=== PATIENT | female | born 1995 | race Caucasian/White ===

== ENCOUNTER 2024-12-26 10:39 | Inpatient (IN) ==
[2024-12-26] MEDS ORDERED: LIDOCAINE 1% LOCAL 20 ML VIAL INFIL PRN (12:45)
[2024-12-26] MEDS ORDERED: OXYTOCIN 30 UNITS/NSS 30 UNITS/500 ML BAG IV PRN ×3 (12:45→21:21)
[2024-12-26] MEDS: LACTATED RINGER'S 1,000 ML IV PRN (13:00)
[2024-12-26 13:22] LABS: Hemoglobin 14.9 g/dl (12.0-16.0); Mean Corpuscular Hemoglobin 33.1 pg (25.0-34.0); Mean Corpuscular Hgb Conc 36.3 g/dL (32.0-36.0); Mean Corpuscular Volume 91.1 fL (80.0-100.0); Mean Platelet Volume 12.6 fL (9.4-12.4); Platelet Count 169 K/uL (130-400); RDW Coefficient of Variation 12.5 % (11.5-14.5); RDW Standard Deviation 41.5 fL (36.4-46.3); White Blood Count 14.23 K/ul (4.8-10.8)
[2024-12-26] MEDS: PENICILLIN GK 6 MU in DEXTROSE 5% 250 ML IV STA (13:30)
--- NOTE | 2024-12-26 13:33 | History & Physical Report ---
Date of Service December 26, 2024 Assessment & Plan (1) Carrier of group B Streptococcus: (2) Normal labor: Plan unable to examine patient. Patient very scared of needles and notes she does not want an epidural. Is afraid of even an IV. Discussed walking and rechecking in an hour, but over that hour the patient became much more uncomfortable and had some bloody show. Likely in labor and 41 weeks. Discussed in detail the epidural and how it will help with labor and ability to evaluate, will never see a needle. She is agreeable to admission and epidural and then will evaluate cervix. Fetus has been overall reassuring and category one. Dr. 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 History of Present Illness Chief Complaint: painful contractions Primary Care Provider: NO PCP Patient is a 29yowf with iup at 41 0/7 who presents to labor and delivery with painful contractions since about 8am. no lof/vb. +fm and Delivery Plans GBS Positive in Urine *Treat in Labor IOL post-dates 12/29 inability to tolerate exam OB Labs: Blood Type A Positive 06/09/24 Antibody Screen NEGATIVE 06/09/24 Hgb 12.9 g/dl (12.0-16.0) 09/29/24 Hct 36.7 % (37.0-47.0) L 09/29/24 MCV 88.5 fL (80.0-100.0) 06/09/24 Plt Count 182 K/uL (130-400) 06/09/24 Rubella IgG Antibody Immune (Immune) 06/09/24 Treponema pallidum Ab Negative (Negative) 09/29/24 Hep Bs Antigen Negative (Negative) 06/09/24 Hepatitis C Antibody Negative (Negative) 06/09/24 HIV 1&2 Ab/P24 Ag 4thGn Negative (Negative) 06/09/24 Glucose 1 Hr 50 gm 154 mg/dl (70-130) H 09/29/24 Maternal Serum AFP 40.4 ng/mL 07/07/24 OB Optional Labs: Chlamydia trachomatis RNA Not Detected (NotDetected) 05/12/24 Neisseria gonorrhoeae RNA Not Detected (NotDetected) 05/12/24 Alpha Fetoprotein Triple Screen SEE NOTE 07/07/24 GBS neg neg Horizon, low risk panorama Allergies Allergy/AdvReac Type Severity Reaction Status Date / Time Sulfa (Sulfonamide Allergy Intermediate Rash Verified 12/22/24 14:24 Antibiotics) Home Medications Medication Instructions Recorded Confirmed Type loratadine 10 mg tablet (Claritin) 10 mg PO DAILY 11/10/23 12/22/24 History ascorbate calcium (vitamin C) PO 05/05/24 12/22/24 History fluticasone propionate [Flonase] intranasal 05/05/24 12/22/24 History vits,calcium 21-iron fum tab PO 05/05/24 12/22/24 History 14 mg iron-folic acid 400 mcg tablet ( Complete) Patient History Medical History Dental root implant present Miscarriage Varicella vaccine Surgical History H/O tympanostomy S/P wisdom tooth extraction Family History Grandmother (Maternal) Breast cancer Denies family history of Ovarian cancer Prostate cancer Myocardial infarction Colorectal cancer Social History Smoking Status: Never smoker Second Hand Exposure: No; Do You Dip or Chew Tobacco: No; Tobacco Cessation Education Requested by Patient: No Hx Alcohol Use: No Hx Substance Use: No Preferred Language: German Communication Ability: Effective Card Doffer Required: No Beliefs That Will Affect Care: None marital status: marital status details: Spouse Everton Arreaga [phone] Current Living Situation: Spouse Current Living Situation Comment: Everton- current occupational status: employed current occupation: [employer] Other Information That Helps Us Care for You: No Feels Safe at Home: Yes Safety Concerns: Feels Safe At This Time Assistive Devices: None OB History g1--present 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 barely allows me to place a finger vaginally, on attempt, cx posterior, ? 1-2cm toco--q2-3 efm--130s with mod variability, accels present, no decels Results & Data Vital Signs (Past 12 Hours) Vital Signs Temp Pulse Resp BP Pulse Ox 12/26/24 13:31 87 100 12/26/24 13:26 85 100 12/26/24 13:17 77 99 12/26/24 13:12 88 100 12/26/24 13:07 85 100 12/26/24 13:02 68 100 12/26/24 10:47 36.7 C 75 18 128/78 Coding Level of Care Code None Diagnoses Carrier of group B Streptococcus Z22.330 Normal labor O80; Z37.9
[2024-12-26] MEDS ORDERED: fentaNYL citrate PF 100 MCG/2 ML VIAL EPI PRN (13:45)
[2024-12-26] MEDS ORDERED: SODIUM CHLORIDE 0.9% PF INJ 10 ML VIAL EPI PRN (13:45)
[2024-12-26] MEDS ORDERED: NALOXONE HCL 1 MG in SODIUM CHLORIDE 0.9% 1,000 ML IV PRN (13:45)
[2024-12-26] MEDS ORDERED: BUPIVACAINE 0.25% PF 30 ML VIAL EPI PRN (13:45)
[2024-12-26] MEDS ORDERED: diphenhydrAMINE 50 MG/ML VIAL IV PRN (13:45)
[2024-12-26] MEDS ORDERED: NALOXONE HCL 0.4 MG/1 ML VIAL/CARP IV PRN (13:45)
[2024-12-26] MEDS ORDERED: LIDOCAINE 2% MPF LOCAL 5 ML VIAL EPI PRN (13:45)
[2024-12-26] MEDS ORDERED: LIDOCAINE 2%/EPINEPHRINE 1:200,000 20 ML PF EPI STA (13:45)
[2024-12-26] MEDS ORDERED: ePHEDrine sulfate 50 MG/ML AMP IV PRN (13:45)
[2024-12-26] MEDS ORDERED: SODIUM CHLORIDE 0.9% PF INJ 10 ML VIAL EPI STA (13:45)
[2024-12-26] MEDS ORDERED: NALBUPHINE HCL INJ 10 MG/ML AMP IV PRN (13:45)
[2024-12-26] MEDS ORDERED: ROPIVACAINE 0.5% PF 5 MG/ML 20 ML VIAL EPI PRN (13:45)
--- NOTE | 2024-12-26 13:49 | Anesthesiology Consultation ---
Date of Service December 26, 2024 Assessment & Plan Chart Review Chart Review: Patient NOT seen in Pre Admission Testing and Acceptable Risk for Labor Epidural Consults Requested none ASA ASA2 Proposed Anesthesia Anesthesia Type: Labor Epidural Risk / Benefits Reviewed With: PT / POA / Parent / Guardian, Accepts Plan and Informed Consent Obtained History Height/Weight Height: 5 ft 1 in Weight: 65.771 kg Allergies Allergy/AdvReac Type Severity Reaction Status Date / Time Sulfa (Sulfonamide Allergy Intermediate Rash Verified 12/22/24 14:24 Antibiotics) Medications Home Medications Medication Instructions Recorded Confirmed Last Taken loratadine 10 mg tablet (Claritin) 10 mg PO DAILY 11/10/23 12/22/24 11/10/23 ascorbate calcium (vitamin C) PO 05/05/24 12/22/24 Unknown fluticasone propionate [Flonase] intranasal 05/05/24 12/22/24 Unknown vits,calcium 21-iron fum tab PO 05/05/24 12/22/24 Unknown 14 mg iron-folic acid 400 mcg tablet ( Complete) Active Medications Generic Name Dose Route Start Last Admin Trade Name Freq PRN Reason Stop Dose Admin Lactated Ringer's 1,000 mls @ 125 mls/hr 12/26/24 12:45 12/26/24 13:31 Lr IV 12/27/24 12:44 125 mls/hr .Q8H PRN Infusion L&D Protocol Protocol NPO Date Last Intake of Fluids: 12/26/24 Time Last Intake of Fluids: 13:30 Date Last Intake of Solids: 12/26/24 Time Last Intake of Solids: 06:00 Past Medical History Medical History Dental root implant present Miscarriage Varicella vaccine Exercise / Class Metabolic Activity 1 > 8 Run/Swim/Ski/Tennis Past Family History Family History Grandmother (Maternal) Breast cancer Denies family history of Ovarian cancer Prostate cancer Myocardial infarction Colorectal cancer Past Surgical History Surgical History H/O tympanostomy S/P wisdom tooth extraction Past Anesthesia History No Hx of Anesthesia Complications and No Family Hx of Anesthesia Complications History of PONV No Hx of PONV and No Hx of Motion Sickness Social History Smoking Status: Never smoker Do You Dip or Chew Tobacco: No Hx Alcohol Use: No Hx Substance Use: No substance use type: does not use Review of Systems ROS Unobtainable: All systems reviewed & are unremarkable except as noted in HPI & below Physical Exam Vital Signs Last Vital Signs Temp 36.7 C 12/26/24 10:47 Pulse 84 12/26/24 13:41 Resp 18 12/26/24 10:47 BP 128/78 12/26/24 10:47 Pulse Ox 100 12/26/24 13:41 ENMT Mouth: no TMJ abnormality Thyromental Distance: > or= 3.5 Finger Breadths Mallampati Class: II Neck normal visual inspection and trachea midline; neck extension not limited Respiratory normal respiratory effort Auscultation: lungs clear to auscultation bilaterally Cardiovascular Rate/Rhythm: regular rate and regular rhythm Heart Sounds: no murmur Musculoskeletal Spine: normal cervical ROM Extremities: full ROM of extremities Neurologic moves all extremities Psychiatric Orientation: alert and oriented x 3 Testing Laboratory Results 12/26/24 12:52
[2024-12-26] MEDS: LIDOCAINE 2%/EPINEPHRINE 1:200,000 20 ML PF ONE (14:06)
[2024-12-26] MEDS: fentANYL 2 MCG/ML BUPIVacaine 0.125%-NSS 100ML BAG ONE (14:06)
[2024-12-26] MEDS: BUPIVACAINE 0.25% PF 30 ML VIAL EPI STA (14:06)
[2024-12-26] MEDS: ePHEDrine sulfate 50 MG/ML AMP ONE (14:10)
[2024-12-26] MEDS: fentaNYL citrate PF 100 MCG/2 ML VIAL ONE (14:10)
[2024-12-26] MEDS: SODIUM CHLORIDE 0.9% PF INJ 10 ML VIAL ONE (14:10)
[2024-12-26] MEDS: PENICILLIN GK 3 MU in DEXTROSE 5% 100 ML IV SCH (17:02)
--- NOTE | 2024-12-26 17:11 | Anesthesia Procedure Note ---
Date of Service December 26, 2024 Anesthesia Epidural Re-Dose Vital Signs Temp Pulse Resp BP Pulse Ox 36.7 C 79 18 121/77 100 12/26/24 14:30 12/26/24 17:06 12/26/24 16:30 12/26/24 17:05 12/26/24 17:06 Notes Pain Intensity: 1 Dilatation (cm): 7.0 Effacement (%): 100 Called by nursing to evaluate epidural as the patient is having increased pain. The epidural was re-dosed with the following medications (all medications via epidural route) after negative aspiration of the epidural catheter for CSF/HEME. 0.2 Ropivacaine ml via epidural After Epidural Re-Dose Mental Status: alert / awake / arousable and participated in evaluation Pain: improving with treatment Airway Patency, RR, SpO2: stable & adequate BP & HR: stable & adequate Additional Notes: Asked to assess patient for redose. Patient had T12 level on right and L2 level on left. Redosed with 100 mcg fentanyl and 8 cc of 0.25 % bupi. pain improved. HDS
[2024-12-26] MEDS: fentaNYL citrate PF 100 MCG/2 ML VIAL EPI STA (17:18)
[2024-12-26] MEDS: BUPIVACAINE 0.25% PF 30 ML VIAL ONE (17:18)
--- NOTE | 2024-12-26 17:58 | Labor Progress Brief Note ---
Date of Service December 26, 2024 Subjective Comfortable after redosed epidural. Physical Exam Genitourinary: 9/100/0 SROM during exam without using hook, moderate mec fluid. FHT cat 1 with early decels intermittently. Add pitocin to improve contraction pattern, which was Q2-3 but has recently become somewhat dysfunctional with grouped contractions. Results & Data Vital Signs (Past 12 Hours) Vital Signs Temp Pulse Resp BP Pulse Ox 12/26/24 17:55 90 118/79 12/26/24 17:51 76 99 12/26/24 17:50 65 118/73 12/26/24 17:46 66 99 12/26/24 17:45 67 119/72 12/26/24 17:41 67 98 12/26/24 17:40 70 112/70 12/26/24 17:36 69 98 12/26/24 17:35 68 122/72 12/26/24 17:31 70 97 12/26/24 17:30 78 16 118/69 12/26/24 17:26 75 98 12/26/24 17:25 71 121/73 12/26/24 17:21 77 97 12/26/24 17:20 72 113/70 12/26/24 17:17 77 122/76 12/26/24 17:16 73 99 12/26/24 17:11 81 98 12/26/24 17:06 79 100 12/26/24 17:05 75 121/77 12/26/24 17:01 115 H 100 12/26/24 17:00 18 12/26/24 17:00 18 12/26/24 16:56 99 H 99 12/26/24 16:51 105 H 100 12/26/24 16:50 96 H 127/77 12/26/24 16:46 92 H 100 12/26/24 16:41 108 H 100 12/26/24 16:36 76 100 12/26/24 16:35 91 H 115/75 12/26/24 16:31 82 100 12/26/24 16:30 18 12/26/24 16:30 18 12/26/24 16:26 79 100 12/26/24 16:21 100 12/26/24 16:21 83 12/26/24 16:21 71 120/78 12/26/24 16:16 82 100 12/26/24 16:11 74 100 12/26/24 16:06 67 99 12/26/24 16:05 74 113/80 12/26/24 16:01 73 100 12/26/24 16:00 18 12/26/24 16:00 18 12/26/24 15:56 57 L 100 12/26/24 15:51 58 L 100 12/26/24 15:50 55 L 110/75 12/26/24 15:46 65 100 12/26/24 15:41 83 98 12/26/24 15:36 60 100 12/26/24 15:35 70 111/71 12/26/24 15:31 65 100 12/26/24 15:30 16 12/26/24 15:30 16 12/26/24 15:26 63 100 12/26/24 15:21 100 12/26/24 15:21 74 12/26/24 15:21 61 106/59 L 12/26/24 15:16 58 L 100 12/26/24 15:11 70 100 12/26/24 15:06 66 100 12/26/24 15:05 63 108/67 12/26/24 15:01 59 L 100 12/26/24 15:00 16 12/26/24 15:00 16 12/26/24 14:56 64 100 12/26/24 14:51 68 100 12/26/24 14:48 71 103/66 12/26/24 14:46 66 100 12/26/24 14:43 66 104/64 12/26/24 14:41 62 100 12/26/24 14:38 59 L 107/63 12/26/24 14:36 61 100 12/26/24 14:32 61 106/60 12/26/24 14:31 70 100 12/26/24 14:30 98.1 F 61 16 108/55 L 12/26/24 14:28 60 105/55 L 12/26/24 14:26 67 107/64 100 12/26/24 14:24 67 105/60 12/26/24 14:22 60 100/58 L 12/26/24 14:21 62 100 12/26/24 14:20 66 102/58 L 12/26/24 14:18 71 110/61 12/26/24 14:16 100 12/26/24 14:16 79 04/11/25 14:16 78 102/57 L 12/26/24 14:14 76 96/68 L 12/26/24 14:12 79 98/58 L 12/26/24 14:11 79 98 12/26/24 14:10 79 106/64 12/26/24 14:08 80 100/64 12/26/24 14:06 97 12/26/24 14:06 73 12/26/24 14:06 78 102/67 12/26/24 14:04 83 101/72 12/26/24 14:02 83 125/73 12/26/24 14:01 87 98 12/26/24 13:56 87 100 12/26/24 13:51 81 100 12/26/24 13:46 83 100 12/26/24 13:41 84 100 12/26/24 13:36 90 100 12/26/24 13:31 87 100 12/26/24 13:26 85 100 12/26/24 13:17 77 99 12/26/24 13:12 88 100 12/26/24 13:07 85 100 12/26/24 13:02 68 100 12/26/24 10:47 98.1 F 75 18 128/78 Coding Level of Care Code None
--- NOTE | 2024-12-26 19:17 | Anesthesia Procedure Note ---
Date of Service December 26, 2024 Anesthesia Epidural Re-Dose Vital Signs Temp Pulse Resp BP Pulse Ox 37.1 C 93 H 20 117/65 96 12/26/24 17:50 12/26/24 19:12 12/26/24 19:00 12/26/24 19:12 12/26/24 19:11 Notes Pain Intensity: 4 Dilatation (cm): 10.0 Effacement (%): 100 Called by nursing to evaluate epidural as the patient is having increased pain. The epidural was re-dosed with the following medications (all medications via epidural route) after negative aspiration of the epidural catheter for CSF/HEME. 0.2 Ropivacaine ml via epidural After Epidural Re-Dose Mental Status: alert / awake / arousable and participated in evaluation Pain: improving with treatment Airway Patency, RR, SpO2: stable & adequate BP & HR: stable & adequate Additional Notes: Patient reports severe pain again. Suspect patient's anxiety is also contributing to increased pain. Increased pump settings and dosed with 5 cc of 2% lidocaine .pain improved. HDS. is 10 cm and will start to push soon.
[2024-12-26] MEDS ORDERED: NURSING L&D Epidural Breakthrough Pain Update ONE (19:31)
[2024-12-26] MEDS: fentANYL 2 MCG/ML BUPIVacaine 0.125%-NSS 100ML BAG EPI PRN (20:02)
[2024-12-26] MEDS: OXYTOCIN 30 UNITS/NSS 30 UNITS/500 ML BAG IV PRN (20:25)
--- NOTE | 2024-12-26 20:47 | Delivery Summary ---
Vaginal Delivery Summary Date of Service December 26, 2024 Vaginal Delivery Summary DIAGNOSES: 1. Lopez intrauterine at 41w0d gestation. 2. Spontaneous onset of labor. 3. Group B Streptococcus Pos. PROCEDURE: Spontaneous vaginal delivery and repair of second degree laceration. SURGEON: Sonya Roque MD. MECHANICAL ORDNANCE ASSEMBLER: None. ESTIMATED BLOOD LOSS: 200 mL. COMPLICATIONS: None. PLACENTA: Spontaneous and intact with a 3-vessel cord. DISPOSITION: Stable to labor and delivery. DESCRIPTION: The patient pushed well and brought the head to in OA position. The infant's head was allowed to deliver with contraction force and no further active pushing, with the perineum protected during this time. There was no nuchal cord. The shoulders and body delivered without any difficulty, and the infant was placed on the maternal abdomen. It was vigorous and moving all extremities, and making respiratory efforts. The cord was doubly clamped by the MD and then cut by the FOB. The placenta delivered spontaneously and was noted to be intact and with a 3VC. The cervix, vagina and perineum were examined and were found to have a second degree laceration which was repaired in the usual manner with vicryl suture, including a crown stitch to rebuild the perineal body. The fundus was firm and lochia minimal immediately after delivery. [facility] Vaginal Delivery Charge Vaginal Delivery Codes: 83259 global code for the antepartum, delivery, and post-
[2024-12-26] MEDS ORDERED: HYDROCORTISONE ACETATE 25 MG SUPP PR PRN (21:21)
[2024-12-26] MEDS ORDERED: oxyCODONE/ACETAMINOPHEN 5mg/325mg TAB PO PRN (21:21)
[2024-12-26] MEDS ORDERED: bisacodyL 10 MG SUPP PR PRN (21:21)
--- NOTE | 2024-12-26 21:30 | Anesthesia Procedure Note ---
Date of Service December 26, 2024 Anesthesia Post Epidural Note Vital Signs Vital Signs: Temp Pulse Resp BP Pulse Ox 37.0 C 86 18 108/68 97 12/26/24 19:30 12/26/24 21:27 12/26/24 19:30 12/26/24 21:27 12/26/24 20:56 Pain Intensity Right Lower Abdomen: Pain Intensity: 1 Notes Mental Status: alert / awake / arousable and participated in evaluation Nausea / Vomiting: adequately controlled Pain: adequately controlled Airway Patency, RR, SpO2: stable & adequate BP & HR: stable & adequate Hydration State: stable & adequate Neuraxial Anesthesia: was administered and sensory block is resolving Anesthetic Complications: no major complications apparent Epidural: Removed without complications and With tip intact
[2024-12-27] MEDS: ACETAMINOPHEN 325 MG TAB PO PRN (01:11)
[2024-12-27] MEDS: IBUPROFEN 600 MG TAB PO PRN (01:11)
[2024-12-27] MEDS: BENZOCAINE 20% SPRY 85 APPLN/85 GM CAN EXT PRN (01:12)
[2024-12-27] MEDS: DOCUSATE SODIUM 100 MG CAP PO SCH (01:45)
--- NOTE | 2024-12-27 05:55 | Obstetrical Progress Note ---
Date of Service December 27, 2024 Assessment & Plan (1) Encounter for care and examination after delivery: (2) Carrier of group B Streptococcus: Plan Pt is 29 yo post- day 1 s/p at 40w3d. complicated by GBS. - Encourage breast feeding and ambulation - Pain control with tylenol and ibuprofen - Likely Discharge 12/28 Admission and Anticipated Discharge Date Admission Date: December 26, 2024 Supervising Physician Co-Signing Physician Notes Resident Physician Supervision Note: I interviewed and examined the patient. Discussed with Dr. Grajeda and agree with findings and plan as documented in the note. Any exceptions or clarifications are listed here: [ ] Documented By: Sonya Roque MD, FACOG Subjective Pt is 29 yo post- day 1 s/p at 40w3d. complicated by GBS. Ambulation:In room Voiding:voiding normally Passing gas: no BM: No Diet tolerance:regular diet Lochia:bloody, no clots Feeding type: breast Current pain level: 4 /10 improved with ibuprofen Resting comfortably this morning in NAD. Denies LANDRY, CP, SOB, N/V/D, LE pain/swelling. Review of Systems Review of Systems: As per HPI Physical Exam Constitutional: WD/WN, vitals as above Respiratory: normal respiratory effort, lungs clear to auscultation Cardiovascular: RRR, no murmur, no edema Gastrointestinal (Abdomen): normal bowel sounds, soft, nontender, no hepatosplenomegaly Uterine fundus firm and at 1 cm below level of umbilicus Neurologic: PERRL, EOMI, accommodation nl, no face palsy, no dysarthria Moving all 4 extremities on command Psychiatric: A+Ox3, euthymic affect Results & Data Vital Signs (Past 12 Hours) Vital Signs Temp Pulse Pulse Resp BP BP Pulse Ox 12/27/24 04:15 36.6 C 70 18 98/64 L 98 12/27/24 01:00 36.8 C 86 18 96/68 L 98 12/26/24 22:41 101 H 112/62 12/26/24 22:26 83 100/56 L 12/26/24 22:11 89 101/58 L 12/26/24 21:57 99 H 113/70 12/26/24 21:42 88 104/59 L 12/26/24 21:27 86 108/68 12/26/24 21:11 93 H 118/62 12/26/24 20:57 90 111/57 L 12/26/24 20:56 90 97 12/26/24 20:51 87 97 12/26/24 20:46 99 H 97 12/26/24 20:42 107 H 162/70 H 12/26/24 20:41 110 H 97 12/26/24 20:36 103 H 97 12/26/24 20:31 119 H 96 12/26/24 20:26 110 H 97 12/26/24 20:25 131 H 90 12/26/24 20:21 134 H 99 12/26/24 20:16 120 H 98 12/26/24 20:14 113 H 129/93 12/26/24 20:11 127 H 98 12/26/24 20:06 105 H 97 12/26/24 20:01 105 H 100 12/26/24 19:57 96 H 131/77 12/26/24 19:56 105 H 95 12/26/24 19:51 117 H 98 12/26/24 19:46 92 H 99 12/26/24 19:44 107 H 129/77 12/26/24 19:41 95 H 99 12/26/24 19:36 86 100 12/26/24 19:31 105 H 98 12/26/24 19:30 18 12/26/24 19:30 37.0 C 18 12/26/24 19:27 90 128/76 12/26/24 19:26 96 H 99 12/26/24 19:21 122 H 98 12/26/24 19:16 94 H 98 12/26/24 19:12 93 H 117/65 12/26/24 19:11 92 H 96 12/26/24 19:06 97 H 97 12/26/24 19:01 99 H 97 12/26/24 19:00 20 12/26/24 19:00 20 12/26/24 18:58 94 12/26/24 18:58 75 12/26/24 18:58 75 122/88 12/26/24 18:56 95 H 96 12/26/24 18:51 82 98 12/26/24 18:46 82 99 12/26/24 18:42 85 106/55 L 12/26/24 18:41 83 100 12/26/24 18:36 80 97 12/26/24 18:31 78 96 12/26/24 18:30 16 12/26/24 18:30 16 12/26/24 18:26 79 116/56 L 98 12/26/24 18:21 85 132/81 99 12/26/24 18:16 73 100 12/26/24 18:15 70 121/76 12/26/24 18:11 70 98 12/26/24 18:10 68 120/72 12/26/24 18:06 67 97 12/26/24 18:05 64 114/69 12/26/24 18:01 98 12/26/24 18:01 71 12/26/24 18:01 66 122/69 12/26/24 18:00 16 12/26/24 18:00 16 12/26/24 17:56 84 100 12/26/24 17:55 90 118/79 O2 Del Method 12/27/24 04:15 Room Air 12/27/24 01:00 Room Air 12/26/24 22:41 12/26/24 22:26 12/26/24 22:11 12/26/24 21:57 12/26/24 21:42 12/26/24 21:27 12/26/24 21:11 12/26/24 20:57 12/26/24 20:56 12/26/24 20:51 12/26/24 20:46 12/26/24 20:42 12/26/24 20:41 12/26/24 20:36 12/26/24 20:31 12/26/24 20:26 12/26/24 20:25 12/26/24 20:21 12/26/24 20:16 12/26/24 20:14 12/26/24 20:11 12/26/24 20:06 12/26/24 20:01 12/26/24 19:57 12/26/24 19:56 12/26/24 19:51 12/26/24 19:46 12/26/24 19:44 12/26/24 19:41 12/26/24 19:36 12/26/24 19:31 12/26/24 19:30 12/26/24 19:30 12/26/24 19:27 12/26/24 19:26 12/26/24 19:21 12/26/24 19:16 12/26/24 19:12 12/26/24 19:11 12/26/24 19:06 12/26/24 19:01 12/26/24 19:00 12/26/24 19:00 12/26/24 18:58 12/26/24 18:58 12/26/24 18:58 12/26/24 18:56 12/26/24 18:51 12/26/24 18:46 12/26/24 18:42 12/26/24 18:41 12/26/24 18:36 12/26/24 18:31 12/26/24 18:30 12/26/24 18:30 12/26/24 18:26 12/26/24 18:21 12/26/24 18:16 12/26/24 18:15 12/26/24 18:11 12/26/24 18:10 12/26/24 18:06 12/26/24 18:05 12/26/24 18:01 12/26/24 18:01 12/26/24 18:01 12/26/24 18:00 12/26/24 18:00 12/26/24 17:56 12/26/24 17:55 Resident Activity Tracking Resident Involvement: Resident Care Provided Care Provided: OB Delivery
[2024-12-27 07:17] LABS: Hematocrit (blood only) 33.2 % (37.0-47.0); Hemoglobin 11.6 g/dl (12.0-16.0); Mean Corpuscular Hemoglobin 32.7 pg (25.0-34.0); Mean Corpuscular Hgb Conc 34.9 g/dL (32.0-36.0); Mean Corpuscular Volume 93.5 fL (80.0-100.0); Mean Platelet Volume 12.4 fL (9.4-12.4); Platelet Count 142 K/uL (130-400); RDW Coefficient of Variation 12.7 % (11.5-14.5); RDW Standard Deviation 43.8 fL (36.4-46.3); Red Blood Count 3.55 M/uL (4.20-5.40); White Blood Count 15.83 K/ul (4.8-10.8)
[2024-12-27] MEDS: LIDOCAINE 2% LOCAL 20 ML VIAL ONE (08:03)
[2024-12-27] MEDS: LIDOCAINE 2%/EPINEPHRINE 1:200,000 20 ML PF ONE (08:03)
[2024-12-27] MEDS: PRENATAL VITAMIN 1 TAB PO SCH (08:33)
[2024-12-27] MEDS: DIPHTHER/TETAN/PERTUS Vaccine (Tdap, Adol/Adult) 0.5mL IM ONE (08:45)
[2024-12-27] MEDS: LORATADINE 10 MG TAB PO SCH (08:52)
[2024-12-27] MEDS: bisacodyL 5 MG TABEC PO SCH (20:50)
--- NOTE | 2024-12-28 07:37 | Obstetrical Progress Note ---
Date of Service December 28, 2024 Assessment & Plan (1) Encounter for care and examination after delivery: Plan Doing well. Plan d/c. Instructions given. Call for appt in one week for check given her anxiety issues. Day #:: 2 Subjective Ambulation: ambulating normally Voiding: no voiding problems Passing Gas:: Yes Diet Tolerance:: regular diet Lochia:: Small Feeding Type:: breast feeding Physical Exam Constitutional WD/WN, vitals as above Respiratory normal respiratory effort, lungs clear to auscultation Cardiovascular RRR, no murmur, no edema Extremities: no calf tenderness and no edema Gastrointestinal (Abdomen) soft, gravid, nt Psychiatric A+Ox3, euthymic affect Results & Data Vital Signs (Past 12 Hours) Vital Signs Temp Pulse Resp BP O2 Del Method 12/28/24 05:30 36.7 C 81 18 113/67 Room Air
[2024-12-28 07:54] LABS: Hemoglobin 10.1 g/dl (12.0-16.0)
[2024-12-28 09:10] VITALS: BP 109/73; PULSE 73; RESP 16; TEMP 98.8; O2SAT 98
== END 2024-12-28 12:24 | disposition home or self-care (01) | DRG 807 ==
LOC: OPB 10:39 → 4S1 10:44 → 4E1 23:50